=== PATIENT | female | born 2000 | race Caucasian/White ===

== ENCOUNTER 2018-10-25 22:00 | Emergency (ER) | payer OTHER ==
[2018-10-25] MEDS ORDERED: KETOROLAC TROMETHAMINE INJ/PF 30 MG/1 ML SDV IV ONE (22:44)
[2018-10-25] MEDS ORDERED: MORPHINE SULFATE 10 MG/ML INJ IV ONE (22:45)
[2018-10-25] MEDS ORDERED: ONDANSETRON HCL INJ/PF 4 MG/2 ML SDV IV ONE (22:46)
[2018-10-25 23:06] LABS: APPEARANCE,URINE SLIGHTLY-CLOUDY; BILIRUBIN,URINE NEGATIVE (NEGATIVE); GLUCOSE, URINE NEGATIVE (NEGATIVE); KETONES,URINE NEGATIVE (NEGATIVE); LEUKOCYTE ESTERASE,URINE MODERATE (NEGATIVE); NITRITE,URINE POSITIVE (NEGATIVE); PROTEIN,URINE NEGATIVE (NEGATIVE); URINE SPECIFIC GRAVITY 1.005
[2018-10-25 23:07] LABS: COLOR,URINE ORANGE
[2018-10-25 23:11] LABS: ABSOLUTE BASOPHILS # (AUTO) 0.1 10^3/uL (0.0-0.2); ABSOLUTE EOSINOPHILS # (AUTO) 0.2 10^3/uL (0.0-0.6); ABSOLUTE LYMPHOCYTES (AUTO) 2.8 10^3/uL (0.5-4.7); ABSOLUTE MONOCYTES (AUTO) 0.9 10^3/uL (0.1-1.4); BASOPHILS % (AUTO) 0.8 % (0-2); EOSINOPHILS % (AUTO) 2.5 % (0-6); HEMATOCRIT 39.8 % (36.0-47.0); HEMOGLOBIN 13.7 g/dL (12.0-15.5); LYMPHOCYTES % (AUTO) 35.2 % (13-45); MEAN CORPUSCULAR HGB CONC 34.4 g/dL (32.0-36.0); MEAN CORPUSCULAR VOLUME 90 fl (80-97); MONOCYTES % (AUTO) 11.7 % (3-13); PLATELET COUNT 173 10^3/uL (150-450); RED CELL DISTRIBUTION WIDTH 13.2 % (11.5-14.0); SEGMENTED NEUTROPHILS % (AUTO) 49.8 % (42-78); TOTAL CELLS COUNTED % (AUTO) 100 %
[2018-10-25 23:26] LABS: ALANINE AMINOTRANSFERASE 19 U/L (9-52); ALBUMIN 4.6 g/dL (3.5-5.0); ALKALINE PHOSPHATASE 42 U/L (38-126); ANION GAP 15 (5-19); ASPARTATE AMINO TRANSFERASE 19 U/L (14-36); BILIRUBIN,TOTAL 0.4 mg/dL (0.2-1.3); BLOOD UREA NITROGEN 14 mg/dL (7-20); CALCIUM 10.1 mg/dL (8.4-10.2); CARBON DIOXIDE 24 mmol/L (22-30); CHLORIDE 106 mmol/L (98-107); GLUCOSE 91 mg/dL (75-110); POTASSIUM 4.6 mmol/L (3.6-5.0); SODIUM 145.2 mmol/L (137-145); TOTAL PROTEIN 7.2 g/dL (6.3-8.2)
[2018-10-25] MEDS ORDERED: HYDROMORPHONE HCL INJ/PF 2 MG/ML AMPULE IV ONE (23:47)
[2018-10-25] MEDS ORDERED: LEVOFLOXACIN 750 MG/D5W RTU 750 MG/150 ML RTUPB IV ONE (23:49)
--- NOTE | 2018-10-25 23:57 | ER Document Report ---
ED General - General Chief Complaint: Possible Kidney Stone Stated Complaint: URINARY PAIN Time Seen by Provider: 10/25/18 22:26 Notes: 18-year-old female in acute distress with history of chronic kidney infections secondary to ureteral reflux diagnosed in high school and kidney stone in May 2018 presents to the emergency department with acute right flank pain and dysuria. She says since high school she has had frequent kidney infections similar to her presentation tonight. She was in [facility] at this summer and had similar severe flank pain, received a CT abdomen, and was diagnosed with a kidney stone. She has previously passed stones, collected them but is unclear of the type of stone. She endorses severe right flank pain, severe right lower quadrant pain, urinary frequency, dysuria, and urgency. She has taken Azo with no relief. She denies fever, chills, nausea, vomiting, diarrhea, hematuria. Last menstrual period October 07. TRAVEL OUTSIDE OF THE [place] IN LAST 30 DAYS: No - Related Data Allergies/Adverse Reactions: cephalexin [From KeApixio] Allergy (Verified 10/25/18 23:05) Past Medical History - Social History Smoking Status: Never Smoker Family History: None Patient has suicidal ideation: No Patient has homicidal ideation: No Renal/ Medical History: Reports: Hx Kidney Stones. Denies: Hx Peritoneal Dialysis Review of Systems - Review of Systems Constitutional: See HPI EENT: No symptoms reported Cardiovascular: No symptoms reported Respiratory: See HPI Gastrointestinal: See HPI Genitourinary: See HPI Female Genitourinary: See HPI Musculoskeletal: No symptoms reported Skin: No symptoms reported Hematologic/Lymphatic: No symptoms reported Neurological/Psychological: No symptoms reported Physical Exam - Vital signs Vitals: Temp Pulse Resp BP Pulse Ox 97.9 F 75 18 140/79 H 96 10/25/18 22:08 10/25/18 22:08 10/25/18 22:08 10/25/18 22:08 10/25/18 22:08 - Notes Notes: Reviewed vital signs and nursing note as charted by RN. CONSTITUTIONAL: Ill-appearing, well-nourished, acting appropriately for age HEAD: Normocephalic, atraumatic, no swelling EYES: PERRL, Conjunctivae clear, no drainage, EOMI, no scleral icterus ENT: External ears without lesions, External auditory canal is patent, airway patent, mucous membranes pink and moist NECK: Supple, no masses CARD: Regular rate and rhythm, no murmurs, no rubs, no gallops, capillary refill < 2 seconds, symmetric pulses RESP: The lungs are clear to auscultation bilaterally, no wheezing, no rales, no rhonchi. Respiratory rate and effort are normal, normal chest excursion. No respiratory distress, no retractions, no stridor, no nasal flaring, no accessory muscle use. ABD/GI: Normal bowel sounds, non-distended, soft, tenderness to palpation right upper quadrant and mild tenderness to palpation right lower quadrant, no rebound , guarding right upper quadrant right flank, exquisite right CVA tenderness, no palpable organomegaly EXT: Normal ROM in all joints, non-tender to palpation, no effusions, no edema SKIN: Normal color for age and race, warm, dry, good turgor, no acute lesions noted NEURO: No facial asymmetry, moves all extremities equally, motor and sensory function intact Course - Re-evaluation Re-evalutation: 10/25/18 23:57 This is a 18-year-old otherwise healthy female in acute distress presenting with right flank pain and right upper quadrant pain. She endorses a history of kidney infections and kidney stones, last one May 2018 for which she received a CT abdomen and [place]. She has exquisite CVA tenderness to right flank and right upper quadrant pain. Labs show no evidence of leukocytosis or any biliary pathology. Urinalysis is positive for UTI. She is afebrile and vital signs are within normal limits. 10/26/18 01:48 Reevaluated patient after pain control with Dilaudid 1 mg. She improved interval improvement but after ultrasound reported increased pain for which another dose of Dilaudid 1 mg IV was given. She reported significant improvement in her symptoms. Ultrasound report shows no evidence of hydronephrosis in either kidney with echogenic foci that could potentially represent kidney stones. Once patient's pain is adequately controlled plan is to discharge home with an additional 4-day course of Levaquin. I will also send her home with a prescription for Percocet for analgesia and instructions with close follow-up with her primary care doctor on Saturday. I explained to her that because the ultrasound was not able to definitively identify infected kidney stones and CT was the definitive study, that we could not be clear if she had infected kidney stones. Because she had a CT abdomen this summer she did not want to get scanned again as she knows that she has history of kidney stones. I told her that if she develops worsening abdominal pain, develops a fever to immediately return to the emergency department and not to go to an urgent care. 10/26/18 01:59 - Vital Signs Vital signs: Temp Pulse Resp BP Pulse Ox 97.9 F 75 18 140/79 H 96 10/25/18 22:08 10/25/18 22:08 10/25/18 22:08 10/25/18 22:08 10/25/18 22:08 - Laboratory Result Diagrams: 10/25/18 23:01 10/25/18 23:01 Laboratory results interpreted by me: 10/25/18 10/25/18 22:00 23:01 Sodium 145.2 H Urine Nitrite POSITIVE H Urine Urobilinogen 4.0 H Ur Leukocyte Esterase MODERATE H Discharge - Discharge Clinical Impression: Pyelonephritis, Acute flank pain Urinary tract infection Qualifiers: Urinary tract infection type: acute pyelonephritis Qualified Code(s): N10 - Acute pyelonephritis Vomiting Qualifiers: Vomiting type: unspecified Vomiting Intractability: non-intractable Nausea presence: with nausea Qualified Code(s): R11.2 - Nausea with vomiting, unspecified Disposition: HOME, SELF-CARE Instructions: Abdominal Pain ([facility]), Acetaminophen, Antinausea Medication ([facility]) , Levofloxacin, Oral Narcotic Medication ([facility]) Additional Instructions: You have been diagnosed with a condition called pyelonephritis which is an infection involving your kidneys and bladder. You have been given a dose of antibiotics here in the emergency department to help begin to treat this infection. Your also being sent home on antibiotics. Please start taking these later on today when you fill the prescription. Complete the course even if you feel better. Please immediately return if you have persistent vomiting, fever, pass out, have worsening pain, become unable to tolerate fluids, or have any other symptoms that are concerning to you. Please follow-up with your primary care physician in the next 24-48 hours. Prescriptions: Levofloxacin [Levaquin 750 mg Tablet] 750 mg PO DAILY #4 tablet Ondansetron [Zofran Odt 4 mg Tablet] 1 - 2 tab PO Q4H PRN #15 tab.rapdis PRN Reason: For Nausea/Vomiting Oxycodone HCl/Acetaminophen [Percocet 5-325 mg Tablet] 1 - 2 tab PO Q4H PRN #10 tablet PRN Reason:
[2018-10-26] MEDS ORDERED: HYDROMORPHONE HCL INJ/PF 2 MG/ML AMPULE IV ONE (01:00)
[2018-10-26] MEDS ORDERED: ONDANSETRON HCL INJ/PF 4 MG/2 ML SDV IV ONE (01:32)
--- NOTE | 2018-10-26 01:43 | RADIOLOGY REPORT (SQ) ---
EXAM DESCRIPTION: US RETROPERITONEUM LIMITED COMPLETED DATE/TME: 10/25/2018 23:39 CLINICAL HISTORY: 18 years, Female, right flank pain COMPARISON: None. TECHNIQUE: Grayscale and Doppler sonogram of the retroperitoneum LIMITATIONS: None. FINDINGS: Right kidney: Length: 9.7 cm. Hydronephrosis: Negative. Echogenicity: Within normal limits. Other: There are nonshadowing echogenic foci within the right kidney Left kidney: Length: 10.1 cm. Hydronephrosis: Negative. Echogenicity: Within normal limits. Other: Contains an echogenic foci along the lower pole Urinary bladder: Lumen: Decompressed Aorta: Visualized portions are unremarkable. Other: None. IMPRESSION: No hydronephrosis. Echogenic foci within both kidneys which may represent stones. copyright 2010 [employer]- All Rights Reserved
[2018-10-26] MEDS ORDERED: HYDROCODONE/ACETAMINOPHEN 5-325 MG (6 TAB/ER DISP) PO PRN (01:57)
[2018-10-26] MEDS ORDERED: ONDANSETRON ODT 4 MG TAB (6 TAB/ER DISP) PO PRN (01:57)
[2018-10-26] MEDS ORDERED: DIPHENHYDRAMINE HCL 50 MG/ML VIAL IV ONE (02:07)
[2018-10-26 03:37] VITALS: BP 119/73
== END 2018-10-26 03:45 | disposition home or self-care (01) ==
LOC: ER 22:00
DX: N10 Acute pyelonephritis (principal); R11.2 Nausea with vomiting, unspecified; Z87.442 Personal history of urinary calculi; Z88.1 Allergy status to other antibiotic agents
CPT/HCPCS: 96376; 99284; 96375; 96365; 36415; 87086; 85025; 81025; 87088; 80053; 81001; 87186; 76775; J1200; J1885; J2270; J1170; J2405 ×2; J1956

== ENCOUNTER 2019-05-21 18:11 | Outpatient (CLI) | payer OTHER ==
[2019-05-21 19:06] LABS: APPEARANCE,URINE CLEAR; BILIRUBIN,URINE NEGATIVE (NEGATIVE); COLOR,URINE COLORLESS; GLUCOSE, URINE NEGATIVE (NEGATIVE); KETONES,URINE NEGATIVE (NEGATIVE); LEUKOCYTE ESTERASE,URINE NEGATIVE (NEGATIVE); NITRITE,URINE NEGATIVE (NEGATIVE); PROTEIN,URINE NEGATIVE (NEGATIVE); URINE SPECIFIC GRAVITY 1.002; UROBILINOGEN,URINE NEGATIVE mg/dL (<2.0)
[2019-05-21 19:26] LABS: URINE AMPHETAMINES SCREEN NEGATIVE; URINE BARBITURATES SCREEN NEGATIVE; URINE BENZODIAZEPINES SCREEN NEGATIVE; URINE COCAINE SCREEN NEGATIVE; URINE METHADONE SCREEN NEGATIVE; URINE PHENCYCLIDINE SCREEN NEGATIVE
[2019-05-21 19:30] LABS: URINE MARIJUANA (THC) SCREEN NEGATIVE
--- NOTE | 2019-05-21 20:12 | Non Stress Test Report ---
Non Stress Test Datetime Report Generated by CPN: 05/21/2019 20:12 DEMOGRAPHIC EGA NST: 34.0 INDICATION Indication for Study: Ordered by Provider URINE RESULTS Urine Protein, NST: Negative Urine Ketones - NST: Negative Urine Glucose - NST: Negative Urine Blood - NST: Negative MONITORING Monitor Explained: Monitor Explained; Test Explained; Patient Verbalized Understanding Time on Monitor: 05/21/2019 18:17 Time off Monitor: 05/21/2019 19:46 NST Duration: 89 NST INTERVENTIONS NST Interventions: None Physician Notified NST: Dr. Khalil BABY A: [id number] BABY A Movement : Present Contraction Frequency : none FHR Baseline : 140 Accelerations : Prolonged Decelerations : None Variability : Moderate 6-25bpm NST Review: Meets Criteria for Reactive NST NST Review and Verified By : JESSICA Tubbs NST Results: Reactive NST REPORT Report Trigger: Send Report
== END 2019-05-21 20:03 | disposition home or self-care (01) ==
LOC: LC 18:11
PROVIDERS: ATTEND Obstetrics & Gynecology Gynecology
PROC: 4A1HXCZ Monitoring of Products of Conception, Cardiac Rate, External Approach (ICD-10-PCS; principal; 2019-05-21)
DX: O36.8330 Maternal care for abnormalities of the fetal heart rate or rhythm, third trimester, not applicable or unspecified (principal); O47.03 False labor before 37 completed weeks of gestation, third trimester; O09.33 Supervision of pregnancy with insufficient antenatal care, third trimester; Z3A.34 34 weeks gestation of pregnancy
CPT/HCPCS: 59025; 80307; 81001; 82962

== ENCOUNTER 2019-05-21 20:18 | Emergency (ER) | payer OTHER ==
--- NOTE | 2019-05-21 20:22 | ER Document Report ---
ED Medical Screen (RME) - General Chief Complaint: Back Pain Stated Complaint: FEET SWELLING, BACK PAIN Time Seen by Provider: 05/21/19 20:20 Mode of Arrival: Wheelchair Information source: Patient Notes: 19-year-old female presents to ED for complaint of back pain swelling to both feet and no feeling to either feet. She is 34 weeks and states she just came from labor and delivery where they checked her out. She states she was sent to the emergency room for her back pain swelling of the feet and no feeling to either feet. Patient is alert oriented respirations regular and unl abored speaking in full sentences. I have greeted and performed a rapid initial assessment of this patient. A comprehensive ED assessment and evaluation of the patient, analysis of test results and completion of medical decision making process will be conducted by an additional ED providers. Dictation of this chart was performed using voice recognition software; therefore, there may be some unintended grammatical errors. TRAVEL OUTSIDE OF THE [place] IN LAST 30 DAYS: No - Related Data Allergies/Adverse Reactions: cephalexin [From Keflex] Allergy (Unknown, Verified 05/21/19 18:51) Past Medical History Renal/ Medical History: Reports: Hx Kidney Stones. Denies: Hx Peritoneal Dialysis Physical Exam - Vital signs Vitals: Temp Pulse Resp BP Pulse Ox 98.2 F 76 16 123/57 L 99 05/21/19 20:22 05/21/19 20:22 05/21/19 20:22 05/21/19 20:22 05/21/19 20:22 Course - Vital Signs Vital signs: Temp Pulse Resp BP Pulse Ox 98.2 F 76 16 123/57 L 99 05/21/19 20:22 05/21/19 20:22 05/21/19 20:22 05/21/19 20:22 05/21/19 20:22
[2019-05-21 20:53] LABS: ABSOLUTE BASOPHILS # (AUTO) 0.1 10^3/uL (0.0-0.2); ABSOLUTE EOSINOPHILS # (AUTO) 0.1 10^3/uL (0.0-0.6); ABSOLUTE MONOCYTES (AUTO) 1.2 10^3/uL (0.1-1.4); ABSOLUTE NEUT (AUTO) 7.7 10^3/uL (1.7-8.2); BASOPHILS % (AUTO) 0.6 % (0-2); EOSINOPHILS % (AUTO) 0.6 % (0-6); HEMATOCRIT 34.1 % (36.0-47.0); HEMOGLOBIN 11.8 g/dL (12.0-15.5); MEAN CORPUSCULAR HEMOGLOBIN 31.5 pg (27.0-33.4); MEAN CORPUSCULAR HGB CONC 34.7 g/dL (32.0-36.0); MEAN CORPUSCULAR VOLUME 91 fl (80-97); MONOCYTES % (AUTO) 10.6 % (3-13); PLATELET COUNT 173 10^3/uL (150-450); RED BLOOD COUNT 3.76 10^6/uL (3.72-5.28); RED CELL DISTRIBUTION WIDTH 13.7 % (11.5-14.0); SEGMENTED NEUTROPHILS % (AUTO) 70.2 % (42-78); TOTAL CELLS COUNTED % (AUTO) 100 %
[2019-05-21 21:23] LABS: BLOOD UREA NITROGEN 7 mg/dL (7-20); CALCIUM 9.4 mg/dL (8.4-10.2); CHLORIDE 105 mmol/L (98-107); GLUCOSE 75 mg/dL (75-110); POTASSIUM 3.7 mmol/L (3.6-5.0)
[2019-05-21 21:24] LABS: ALANINE AMINOTRANSFERASE 36 U/L (9-52); ALBUMIN 3.7 g/dL (3.5-5.0); ALKALINE PHOSPHATASE 94 U/L (38-126); ASPARTATE AMINO TRANSFERASE 32 U/L (14-36); BILIRUBIN,DIRECT 0.2 mg/dL (0.0-0.4); BILIRUBIN,TOTAL 0.3 mg/dL (0.2-1.3); SODIUM 135.3 mmol/L (137-145)
[2019-05-21 21:25] LABS: ANION GAP 7 (5-19)
[2019-05-21 21:26] LABS: CARBON DIOXIDE 23 mmol/L (22-30)
[2019-05-21 21:27] LABS: TOTAL PROTEIN 6.4 g/dL (6.3-8.2)
--- NOTE | 2019-05-21 21:28 | ER Document Report ---
ED General - General Chief Complaint: Back Pain Stated Complaint: FEET SWELLING, BACK PAIN Time Seen by Provider: 05/21/19 20:20 Mode of Arrival: Wheelchair Notes: Patient is a 19-year-old female, at 34 weeks gestation, that comes to the emergency department for chief complaint of numbness to her lower back and nu mbness and swelling to her legs. She states she feels like this has been developing over the past 2 days. She was seen upstairs by UTILITY DRIVER first, labor and delivery cleared her but sent her down here for her symptoms. She is feeling baby move, she denies fever/chills, nausea/vomiting, injury. She denies fecal incontinence. She states excellently peed on herself a little bit earlier. Past medical history of kidney stones, insomnia (takes Ambien as needed), depression on Zoloft, appendectomy. Denies medical history otherwise. TRAVEL OUTSIDE OF THE [place] IN LAST 30 DAYS: No - Related Data Allergies/Adverse Reactions: cephalexin [From Silver Curve] Allergy (Unknown, Verified 05/21/19 18:51) Past Medical History - General Information source: Patient - Social History Smoking Status: Never Smoker Frequency of alcohol use: None Drug Abuse: None Lives with: Family Family History: None Patient has suicidal ideation: No Patient has homicidal ideation: No - Medical History Medical History: Negative Renal/ Medical History: Reports: Hx Kidney Stones. Denies: Hx Peritoneal Dialysis Surgical Hx: Negative - Immunizations Immunizations up to date: Yes Hx Diphtheria, Pertussis, Tetanus Vaccination: Yes Review of Systems - Review of Systems Constitutional: No symptoms reported EENT: No symptoms reported Cardiovascular: No symptoms reported Respiratory: No symptoms reported Gastrointestinal: No symptoms reported Genitourinary: No symptoms reported Female Genitourinary: See HPI Musculoskeletal: See HPI Skin: No symptoms reported Hematologic/Lymphatic: No symptoms reported Neurological/Psychological: See HPI Physical Exam - Vital signs Vitals: Temp Pulse Resp BP Pulse Ox 98.2 F 76 16 123/57 L 99 05/21/19 20:22 05/21/19 20:22 05/21/19 20:22 05/21/19 20:22 05/21/19 20:22 - Notes Notes: GENERAL: Alert, interacts well. No acute distress. HEAD: Normocephalic, atraumatic. EYES: Pupils equal, round, and reactive to light. Extraocular movements intact. ENT: Oral mucosa moist, tongue midline. Oropharynx unremarkable. Airway patent. Nares patent, no nasal septal hematoma, TM's intact. NECK: Full range of motion. Supple. Trachea midline. LUNGS: Clear to auscultation bilaterally, no wheezes, rales, or rhonchi. No respiratory distress. HEART: Regular rate and rhythm. No murmur ABDOMEN: Soft, non-tender. Non-distended. Bowel sounds present in all 4 quadrants. Gravid abdomen. GENITOURINARY: Deferred EXTREMITIES: Not moving lower extremities. Normal temperature, normal capillary refill, decreased sensation. Equal bilaterally. Upper extremities are unremark able. BACK: no cervical, thoracic, lumbar midline tenderness. No saddle anesthesia, normal distal neurovascular exam. Moves all extremities in full range of motion. NEUROLOGICAL: Alert and oriented x3. Normal speech. Cranial nerves II through XII grossly intact. PSYCH: Normal affect, normal mood. SKIN: Warm, dry, normal turgor. No rashes or lesions noted. Course - Re-evaluation Re-evalutation: Patient is smiling and well-appearing. She tells me that she cannot walk because she cannot feel her legs. With touching her lower extremities she states she does not feel anything. She has minimal bilateral edema, normal pulses, normal coloration. Initially she is stating she cannot feel palpation of the saddle area suggesting saddle anesthesia. I discussed with patient, recommended that we perform a rectal exam to check for rectal tone with a nurse standby and then if this is abnormal that we perform an MRI of the lumbar spine to check for spinal cord compression which would explain her saddle anesthesia and numbness of the lower extremities with the inability to walk. However when I suggested this patient asked if she could attempt to walk first instead of the rectal exam and MRI. Patient was able to get up, stand, and ambulate. As she stood and ambulated she told me that she was regaining sensation in her legs and feet. After she got back in the bed she has no neurological deficits and no lack of sensation. I do suspect is some physiologic swelling because of her advancing and I discussed this, I do not suspect a blood clot, she has clear lungs and no shortness of breath, her laboratory work-up is normal without any evidence of preeclampsia with normal platelets, LFTs, and no protein in the urine. Her blood pressure is normal. Providing with ANUJA stockings. Patient has a follow-up in 2 days with UTILITY DRIVER. I did discuss work-up details, recommendations, follow-up, and return precautions. Patient states understanding and agreement. - Vital Signs Vital signs: Temp Pulse Resp BP Pulse Ox 97.8 F 77 17 126/65 H 96 05/21/19 22:29 05/21/19 22:29 05/21/19 22:29 05/21/19 22:29 05/21/19 22:29 - Laboratory Result Diagrams: 05/21/19 20:39 05/21/19 20:39 Laboratory results interpreted by me: 05/21/19 05/21/19 20:39 20:39 WBC 11.0 H Hgb 11.8 L Hct 34.1 L Sodium 135.3 L Creatinine 0.47 L Discharge - Discharge Clinical Impression: Swelling of lower extremity during Qualifiers: Trimester: third trimester Qualified Code(s): O12.03 - Gestational edema, third trimester Condition: Stable Disposition: HOME, SELF-CARE Additional Instructions: Your work-up and evaluation do not show the evidence of preeclampsia. The lower extremity swelling is most likely venous insufficiency caused by the enlarged uterus. I recommend compression stockings, elevation, and remember to walk/exercise to increase the return. Follow-up on Saturday with your UTILITY DRIVER for additional evaluation and management. Return if you worsen including severe headache, severe worsening swelling, developing redness in the legs or fever, or any other concerning or worsening symptoms.
[2019-05-21 22:34] VITALS: BP 126/65
== END 2019-05-21 22:35 | disposition home or self-care (01) ==
LOC: ER 20:18
DX: O12.03 Gestational edema, third trimester (principal); M54.5 Low back pain; R20.0 Anesthesia of skin; Z3A.34 34 weeks gestation of pregnancy; Z87.442 Personal history of urinary calculi
CPT/HCPCS: 36415; 80053; 85025; 99283